=== PATIENT | female | born 1945 | race Asian ===

== ENCOUNTER 2016-09-30 16:56 | Emergency (ER) | payer OTHER ==
[~2016-09-30 16:56] MED LIST: AMLO10TA PO; ASPI81TA85 PO; ATOR1TAB21 PO; CATA0.1T PO; COLA100C PO; LORATAB PO; MELO15TA4 PO; METF500T PO; MICA80TA PO; OMEP40CA2 PO; PAXI20TA3 PO; PERI8.6T PO
[2016-09-30] MEDS ORDERED: IBUPROFEN 600 MG TAB As Ordered ONE (20:20)
--- NOTE | 2016-09-30 21:11 | REP ---
Clinical: Chest pain. Technique: PA and lateral. Comparison: 02/21/2016. Findings: Mediastinum and cardiac silhouette are stable. Lung dewey demonstrate chronic stable changes. No obvious acute consolidation, effusion, or pneumothorax. Surgical clips in the right axillary region again noted. Impression: Chronic changes similar to prior examination. Signed by Benjamin Hodges MD 09/30/2016 09:03 P
--- NOTE | 2016-09-30 21:43 | EDDOCDS ---
Physician Documentation [facility] Name: Duke Pichardo Age: 71 yrs Sex: Female : 1945 Arrival Date: 09/30/2016 Time: 16:56 Bed Private MD: Brice Arnold Disposition: 09/30/16 21:29 Discharged to Home/Self Care. Impression: Strain of muscle and tendon of back wall of thorax, Acute upper respiratory infection, unspecified. - Condition is Stable. - Discharge Instructions: Muscle Strain, Upper Respiratory Infection, Adult. - Prescriptions for Robaxin 500 mg Oral Tablet - take 2 tablet by ORAL route every 6 hours As needed; 40 tablet. - Medication Reconciliation, Local Pharmacy Hours form. - Follow up: Private Physician; When: Call to arrange an appointment; Reason: Recheck today's complaints, Continuance of care. - Problem is new. - Symptoms are unchanged. Historical: - Allergies: PENICILLINS; - Home Meds: 1. aspirin 81 mg Oral TbEC 1 tab once daily 2. atorvastatin 20 mg oral tab 1 tab once daily 3. Micardis 80 mg Oral tab 1 tab once daily 4. docusate sodium 100 mg Oral cap 1 cap once daily 5. loratadine 10 mg Oral TbDL 1 tab once daily as needed 6. metformin 500 mg Oral tr24 1 tab once daily 7. Mobic 15 mg oral tab 1 tab once daily 8. esomeprazole magnesium 40 mg Oral cpDR 1 cap once daily 9. Norvasc 10 mg Oral tab 1 tab at night (Last dose: 09/29/2016) 10. clonidine HCl 0.1 mg Oral tab 1 tab 3 times per day - PMHx: Asthma; Cancer, Breast - Right; CHF; Diabetes - NIDDM: controlled; GERD; hyperlipidemia; Hypertension; - PSHx: Knee surgery- Left; Knee surgery- Right; Mastectomy- Right; - Social history: Smoking status: Patient states was never smoker of tobacco. The patient speaks a little Azeri. - Family history: No immediate family members are acutely ill. - : The pt / caregiver states he / she is not on anticoagulants. Home medication list is obtained from the patient, [employer] import data. - Exposure Risk Screening:: None identified. Vital Signs: 09/30 16:58 BP 143 / 84; Pulse 95; Resp 18 S; Temp 97.9(O); Pulse Ox 95% on R/A; Weight 65.77 kg / gr2 145 lbs (R); Height 5 ft. 1 in. (154.94 cm) (R); Pain 9/10; 19:13 BP 146 / 92; Pulse 88; Resp 16; Temp 99.1; Pulse Ox 95% ; Pain 10/10; cmb 20:25 BP 180 / 91; Pulse 88; Resp 18; Temp 98.3(TE); Pulse Ox 94% on R/A; Pain 10/10; ar3 21:35 BP 170 / 84; Pulse 80; Resp 18; Temp 98.7; Pulse Ox 94% on R/A; Pain 9/10; ar3 16:58 Body Mass Index 27.40 (65.77 kg, 154.94 cm) gr2 MDM: 20:13 Ibuprofen 600 mg PO once ordered. mo1 20:14 Chest, 2 View (pa\E\lat) Ordered. EDMS Administered Medications: 20:30 Drug: Ibuprofen 600 mg [ibuprofen 600 mg tablet (1 tabs)] Route: PO; mb9 Signatures: Dispatcher [employer] EDMS Mary Dockery RN RN kcs O'Hagan, Michael, PA PA mo1 Reagan Gabriel RN RN mb9 The chart was reviewed and I authenticate all verbal orders and agree with the evaluation and treatment provided.Corrections: (The following items were deleted from the chart) 20:34 17:29 Home Meds: Norvasc 10 mg Oral tab 1 tab once daily; dillan mb9 20:34 17:29 Home Meds: clonidine HCl 0.1 mg Oral tab 1 tab once daily; dillan mb9 MTDD
--- NOTE | 2016-09-30 21:43 | EDDOCDS ---
Nurse's Notes [facility] Name: Duke Pichardo Age: 71 yrs Sex: Female : 1945 Arrival Date: 09/30/2016 Time: 16:56 Bed PR2 / Private MD: Brice Arnold Diagnosis: Strain of muscle and tendon of back wall of thorax;Acute upper respiratory infection, unspecified Presentation: 09/30 17:27 Presenting complaint: Patient states: for a couple of weeks she has had pain in both kcs shoulders and into her neck - non known injury. Adult Sepsis Screening: The patient does not have new or worsening altered mentation. Patient's respiratory rate is less than 22. Systolic blood pressure is greater than 100. Patient has a qSOFA score of 0- Negative Sepsis Screen. Suicide/Homicide risk assessment- the patient denies having any suicidal and/or homicidal ideations and does not present with any other emotional, behavioral or mental health complaints. Status: Patient is not a conference services manager or dependent. Transition of care: patient was not received from another setting of care. 17:27 Acuity: JAYLEEN Level 4 kcs 17:27 Method Of Arrival: Walkin/Carried/Asstd kcs Triage Assessment: 17:29 General: Appears comfortable, well developed, well nourished, well groomed, Behavior is kcs cooperative, pleasant. Pain: Location: both shoulders Pain currently is 10 out of 10 on a pain scale. Aggravated by lifting. Neurological: Level of Consciousness is awake, alert. Respiratory: Airway is patent Respiratory effort is even, unlabored, Respiratory pattern is regular, symmetrical. Derm: Skin is intact, is healthy with good turgor, Skin is dry, Skin is normal. Historical: - Allergies: PENICILLINS; - Home Meds: 1. aspirin 81 mg Oral TbEC 1 tab once daily 2. atorvastatin 20 mg oral tab 1 tab once daily 3. Micardis 80 mg Oral tab 1 tab once daily 4. docusate sodium 100 mg Oral cap 1 cap once daily 5. loratadine 10 mg Oral TbDL 1 tab once daily as needed 6. metformin 500 mg Oral tr24 1 tab once daily 7. Mobic 15 mg oral tab 1 tab once daily 8. esomeprazole magnesium 40 mg Oral cpDR 1 cap once daily 9. Norvasc 10 mg Oral tab 1 tab at night (Last dose: 09/29/2016) 10. clonidine HCl 0.1 mg Oral tab 1 tab 3 times per day - PMHx: Asthma; Cancer, Breast - Right; CHF; Diabetes - NIDDM: controlled; GERD; hyperlipidemia; Hypertension; - PSHx: Knee surgery- Left; Knee surgery- Right; Mastectomy- Right; - Social history: Smoking status: Patient states was never smoker of tobacco. The patient speaks a little Mozambican. - Family history: No immediate family members are acutely ill. - : The pt / caregiver states he / she is not on anticoagulants. Home medication list is obtained from the patient, [employer] import data. - Exposure Risk Screening:: None identified. Screenin:45 Screening information is obtained from the patient. Fall risk: No risks identified. mb9 Assistance ADL's: requires no assistance with activities of daily living. Abuse/DV Screen: The patient / caregiver reports he/she is: not in a situation that causes fear, pain or injury. Nutritional screening: No deficits noted. Advance Directives: There is no active DNR order. home support is adequate. Assessment: 20:45 Adult Sepsis Screening: The patient does not have new or worsening altered mentation. mb9 Patient's respiratory rate is less than 22. Systolic blood pressure is greater than 100. Patient has a qSOFA score of 0- Negative Sepsis Screen. General: Appears in no apparent distress, Behavior is appropriate for age, cooperative. Pain: Location: right arm and left arm Pain currently is 5 out of 10 on a pain scale. Respiratory: Airway is patent. Vital Signs: 16:58 BP 143 / 84; Pulse 95; Resp 18 S; Temp 97.9(O); Pulse Ox 95% on R/A; Weight 65.77 kg gr2 (R); Height 5 ft. 1 in. (154.94 cm) (R); Pain 9/10; 19:13 BP 146 / 92; Pulse 88; Resp 16; Temp 99.1; Pulse Ox 95% ; Pain 10/10; cmb 20:25 BP 180 / 91; Pulse 88; Resp 18; Temp 98.3(TE); Pulse Ox 94% on R/A; Pain 10/10; ar3 21:35 BP 170 / 84; Pulse 80; Resp 18; Temp 98.7; Pulse Ox 94% on R/A; Pain 9/10; ar3 16:58 Body Mass Index 27.40 (65.77 kg, 154.94 cm) gr2 Vitals: 16:58 Log In Time: September 30, 2016 at 16:58. gr2 ED Course: 16:57 Patient visited by Jaison Xavier. gr2 16:57 Patient moved to Waiting gr2 16:58 Brice Arnold is Private Physician. gr2 17:00 Patient visited by Jaison Xavier. gr2 17:00 Patient moved to Pre RCE gr2 17:28 Triage Initiated kcs 19:14 Patient visited by Kely Florez. cmb 19:40 Patient moved to Triage 3 mb9 19:57 Reagan Franklin PA is PHCP. mo1 19:57 Palomo Reeves MD is Attending Physician. mo1 20:12 Patient visited by Reagan Franklin PA. mo1 20:27 Patient visited by Michelle Noriega PCA. ar3 20:38 Patient moved to TR3 mb9 20:45 The patient / caregiver is instructed regarding the plan of care and ED course. mb9 21:06 Patient moved to PR2 / 26 ar3 21:33 Chest, 2 View (pa\E\lat) Returned. EDMS Administered Medications: 20:30 Drug: Ibuprofen 600 mg [ibuprofen 600 mg tablet (1 tabs)] Route: PO; mb9 Order Results: Radiology Order: Chest, 2 View (pa\E\lat) Test: Chest, 2 View (pa\E\lat) REASON FOR EXAMINATION: Cough; Clinical: Chest pain.; ; Technique: PA and lateral.; ; Comparison: 02/21/2016.; ; Findings:; Mediastinum and cardiac silhouette are stable. Lung dewey demonstrate chronic; stable changes. No obvious acute consolidation, effusion, or pneumothorax.; Surgical clips in the right axillary region again noted.; ; Impression:; Chronic changes similar to prior examination.; ; ; Signed by; Benjamin Hodges MD 09/30/2016 09:03 P; Outcome: 21:29 Discharge ordered by Provider. mo1 21:43 Patient left the ED. mb9 Signatures: Dispatcher [employer] EDMS Mary Dockery RN RN [facility] Michelle Noriega PCA SECURITY COMPLIANCE ENGINEER ar3 Kely Florez cmb Jasion Xavier gr2 Reagan Franklin PA PA mo1 Reagan GabrielRN RN mb9 Corrections: (The following items were deleted from the chart) 20:34 17:29 Home Meds: Norvasc 10 mg Oral tab 1 tab once daily; dillan mb9 20:34 17:29 Home Meds: clonidine HCl 0.1 mg Oral tab 1 tab once daily; [facility] mb9 MTDD
--- NOTE | 2016-10-02 22:44 | EDDOCDS ---
Nurse's Notes [facility] Name: Duke Pichardo Age: 71 yrs Sex: Female : 1945 Arrival Date: 09/30/2016 Time: 16:56 Bed PR2 / Private MD: Brice Arnold Diagnosis: Strain of muscle and tendon of back wall of thorax;Acute upper respiratory infection, unspecified Presentation: 09/30 17:27 Presenting complaint: Patient states: for a couple of weeks she has had pain in both kcs shoulders and into her neck - non known injury. Adult Sepsis Screening: The patient does not have new or worsening altered mentation. Patient's respiratory rate is less than 22. Systolic blood pressure is greater than 100. Patient has a qSOFA score of 0- Negative Sepsis Screen. Suicide/Homicide risk assessment- the patient denies having any suicidal and/or homicidal ideations and does not present with any other emotional, behavioral or mental health complaints. Status: Patient is not a service trainer or dependent. Transition of care: patient was not received from another setting of care. 17:27 Acuity: JAYLEEN Level 4 kcs 17:27 Method Of Arrival: Walkin/Carried/Asstd kcs Triage Assessment: 17:29 General: Appears comfortable, well developed, well nourished, well groomed, Behavior is kcs cooperative, pleasant. Pain: Location: both shoulders Pain currently is 10 out of 10 on a pain scale. Aggravated by lifting. Neurological: Level of Consciousness is awake, alert. Respiratory: Airway is patent Respiratory effort is even, unlabored, Respiratory pattern is regular, symmetrical. Derm: Skin is intact, is healthy with good turgor, Skin is dry, Skin is normal. Historical: - Allergies: PENICILLINS; - Home Meds: 1. aspirin 81 mg Oral TbEC 1 tab once daily 2. atorvastatin 20 mg oral tab 1 tab once daily 3. Micardis 80 mg Oral tab 1 tab once daily 4. docusate sodium 100 mg Oral cap 1 cap once daily 5. loratadine 10 mg Oral TbDL 1 tab once daily as needed 6. metformin 500 mg Oral tr24 1 tab once daily 7. Mobic 15 mg oral tab 1 tab once daily 8. esomeprazole magnesium 40 mg Oral cpDR 1 cap once daily 9. Norvasc 10 mg Oral tab 1 tab at night (Last dose: 09/29/2016) 10. clonidine HCl 0.1 mg Oral tab 1 tab 3 times per day - PMHx: Asthma; Cancer, Breast - Right; CHF; Diabetes - NIDDM: controlled; GERD; hyperlipidemia; Hypertension; - PSHx: Knee surgery- Left; Knee surgery- Right; Mastectomy- Right; - Social history: Smoking status: Patient states was never smoker of tobacco. The patient speaks a little Belarusian. - Family history: No immediate family members are acutely ill. - : The pt / caregiver states he / she is not on anticoagulants. Home medication list is obtained from the patient, [employer] import data. - Exposure Risk Screening:: None identified. Screenin:45 Screening information is obtained from the patient. Fall risk: No risks identified. mb9 Assistance ADL's: requires no assistance with activities of daily living. Abuse/DV Screen: The patient / caregiver reports he/she is: not in a situation that causes fear, pain or injury. Nutritional screening: No deficits noted. Advance Directives: There is no active DNR order. home support is adequate. Assessment: 20:45 Adult Sepsis Screening: The patient does not have new or worsening altered mentation. mb9 Patient's respiratory rate is less than 22. Systolic blood pressure is greater than 100. Patient has a qSOFA score of 0- Negative Sepsis Screen. General: Appears in no apparent distress, Behavior is appropriate for age, cooperative. Pain: Location: right arm and left arm Pain currently is 5 out of 10 on a pain scale. Respiratory: Airway is patent. Vital Signs: 16:58 BP 143 / 84; Pulse 95; Resp 18 S; Temp 97.9(O); Pulse Ox 95% on R/A; Weight 65.77 kg gr2 (R); Height 5 ft. 1 in. (154.94 cm) (R); Pain 9/10; 19:13 BP 146 / 92; Pulse 88; Resp 16; Temp 99.1; Pulse Ox 95% ; Pain 10/10; cmb 20:25 BP 180 / 91; Pulse 88; Resp 18; Temp 98.3(TE); Pulse Ox 94% on R/A; Pain 10/10; ar3 21:35 BP 170 / 84; Pulse 80; Resp 18; Temp 98.7; Pulse Ox 94% on R/A; Pain 9/10; ar3 16:58 Body Mass Index 27.40 (65.77 kg, 154.94 cm) gr2 Vitals: 16:58 Log In Time: September 30, 2016 at 16:58. gr2 ED Course: 16:57 Patient visited by Jaison Xavier. gr2 16:57 Patient moved to Waiting gr2 16:58 Brice Arnold is Private Physician. gr2 17:00 Patient visited by Jaison Xavier. gr2 17:00 Patient moved to Pre RCE gr2 17:28 Triage Initiated kcs 19:14 Patient visited by Kely Florez. cmb 19:40 Patient moved to Triage 3 mb9 19:57 Reagan Franklin PA is PHCP. mo1 19:57 Palomo Reeves MD is Attending Physician. mo1 20:12 Patient visited by Reagan Franklin PA. mo1 20:27 Patient visited by Michelle Noriega PCA. ar3 20:38 Patient moved to TR3 mb9 20:45 The patient / caregiver is instructed regarding the plan of care and ED course. mb9 21:06 Patient moved to PR2 / 26 ar3 21:33 Chest, 2 View (pa\E\lat) Returned. EDMS 21:43 No IV's were initiated during this patient's visit. No procedures done that require mb9 assistance. 23:40 [facility] Payment Agreement was scanned into [employer] and attached to record. gjb 10/01 12:45 T-Sheet-- Draft Copy was scanned into [employer] and attached to record. gb Administered Medications: 09/30 20:30 Drug: Ibuprofen 600 mg [ibuprofen 600 mg tablet (1 tabs)] Route: PO; mb9 Order Results: Radiology Order: Chest, 2 View (pa\E\lat) Test: Chest, 2 View (pa\E\lat) REASON FOR EXAMINATION: Cough; Clinical: Chest pain.; ; Technique: PA and lateral.; ; Comparison: 02/21/2016.; ; Findings:; Mediastinum and cardiac silhouette are stable. Lung dewey demonstrate chronic; stable changes. No obvious acute consolidation, effusion, or pneumothorax.; Surgical clips in the right axillary region again noted.; ; Impression:; Chronic changes similar to prior examination.; ; ; Signed by; Benjamin Hodges MD 09/30/2016 09:03 P; Outcome: 21:29 Discharge ordered by Provider. mo1 21:43 Patient left the ED. mb9 21:43 Discharge Assessment: Patient awake, alert and oriented x 3. No cognitive and/or mb9 functional deficits noted. Patient verbalized understanding of disposition instructions. patient administered narcotics - no. The following High Risk Discharge criteria are identified: None. Discharged to home ambulatory. Condition: good Condition: stable Condition: improved. Discharge instructions given to patient, Instructed on discharge instructions, follow up and referral plans. medication usage, Demonstrated understanding of instructions, medications, Pt was receptive of discharge instructions/ teaching. Prescriptions given X 1. No special radiology studies were completed. Property :Personal belongings accompany Pt. Signatures: Dispatcher [employer] EDMary Garcia, RN RN Cass Cain, Reg Reg gb Leann, Michelle, TURNER IN TURNER IN ar3 Gautam, Kely cmb Jaison Xavier gr2 Reagan Franklin PA PA mo1 Reagan Gabriel RN RN herson9 Meaghan Vasquez Corrections: (The following items were deleted from the chart) 20:34 17:29 Home Meds: Norvasc 10 mg Oral tab 1 tab once daily; dillan bains9 20:34 17:29 Home Meds: clonidine HCl 0.1 mg Oral tab 1 tab once daily; dillan mb9 Chart Complete MTDD
--- NOTE | 2016-10-02 22:44 | EDDOCDS ---
Physician Documentation [facility] Name: Duke Pichardo Age: 71 yrs Sex: Female : 1945 Arrival Date: 09/30/2016 Time: 16:56 Bed Private MD: Brice Arnold Disposition: 09/30/16 21:29 Discharged to Home/Self Care. Impression: Strain of muscle and tendon of back wall of thorax, Acute upper respiratory infection, unspecified. - Condition is Stable. - Discharge Instructions: Muscle Strain, Upper Respiratory Infection, Adult. - Prescriptions for Robaxin 500 mg Oral Tablet - take 2 tablet by ORAL route every 6 hours As needed; 40 tablet. - Medication Reconciliation, Local Pharmacy Hours form. - Follow up: Private Physician; When: Call to arrange an appointment; Reason: Recheck today's complaints, Continuance of care. - Problem is new. - Symptoms are unchanged. Historical: - Allergies: PENICILLINS; - Home Meds: 1. aspirin 81 mg Oral TbEC 1 tab once daily 2. atorvastatin 20 mg oral tab 1 tab once daily 3. Micardis 80 mg Oral tab 1 tab once daily 4. docusate sodium 100 mg Oral cap 1 cap once daily 5. loratadine 10 mg Oral TbDL 1 tab once daily as needed 6. metformin 500 mg Oral tr24 1 tab once daily 7. Mobic 15 mg oral tab 1 tab once daily 8. esomeprazole magnesium 40 mg Oral cpDR 1 cap once daily 9. Norvasc 10 mg Oral tab 1 tab at night (Last dose: 09/29/2016) 10. clonidine HCl 0.1 mg Oral tab 1 tab 3 times per day - PMHx: Asthma; Cancer, Breast - Right; CHF; Diabetes - NIDDM: controlled; GERD; hyperlipidemia; Hypertension; - PSHx: Knee surgery- Left; Knee surgery- Right; Mastectomy- Right; - Social history: Smoking status: Patient states was never smoker of tobacco. The patient speaks a little Greenlandic. - Family history: No immediate family members are acutely ill. - : The pt / caregiver states he / she is not on anticoagulants. Home medication list is obtained from the patient, [employer] import data. - Exposure Risk Screening:: None identified. Vital Signs: 09/30 16:58 BP 143 / 84; Pulse 95; Resp 18 S; Temp 97.9(O); Pulse Ox 95% on R/A; Weight 65.77 kg / gr2 145 lbs (R); Height 5 ft. 1 in. (154.94 cm) (R); Pain 9/10; 19:13 BP 146 / 92; Pulse 88; Resp 16; Temp 99.1; Pulse Ox 95% ; Pain 10/10; cmb 20:25 BP 180 / 91; Pulse 88; Resp 18; Temp 98.3(TE); Pulse Ox 94% on R/A; Pain 10/10; ar3 21:35 BP 170 / 84; Pulse 80; Resp 18; Temp 98.7; Pulse Ox 94% on R/A; Pain 9/10; ar3 16:58 Body Mass Index 27.40 (65.77 kg, 154.94 cm) gr2 MDM: 20:13 Ibuprofen 600 mg PO once ordered. mo1 20:14 Chest, 2 View (pa\E\lat) Ordered. [facility] 23:40 [facility] Payment Agreement was scanned into [employer] and attached to record. [facility] :40 Financial registration complete. [facility] 10/01 12:45 T-Sheet-- Draft Copy was scanned into [employer] and attached to record. gb Administered Medications: 09/30 20:30 Drug: Ibuprofen 600 mg [ibuprofen 600 mg tablet (1 tabs)] Route: PO; levy Signatures: Dispatcher [employer] EDOK Mary Dockery RN RN kcs Barnhardt, Gloria, Reg Reg Reagan Mcdowell PA PA mo1 Reagan Gabriel RN RN mb9 Beck, Gabriela gjb The chart was reviewed and I authenticate all verbal orders and agree with the evaluation and treatment provided.Corrections: (The following items were deleted from the chart) 20:34 17:29 Home Meds: Norvasc 10 mg Oral tab 1 tab once daily; dillan lockett 20:34 17:29 Home Meds: clonidine HCl 0.1 mg Oral tab 1 tab once daily; dillan bains9 Attachments: 23:40 [facility] Payment Agreement [facility] 10/01 12:45 T-Sheet-- Draft Copy gb Chart Complete MTDD
--- NOTE | 2016-10-02 22:44 | EDDOCDS ---
Physician Documentation [facility] Name: Duke Pichardo Age: 71 yrs Sex: Female : 1945 Arrival Date: 09/30/2016 Time: 16:56 Bed Private MD: Brice Arnold Disposition: 09/30/16 21:29 Discharged to Home/Self Care. Impression: Strain of muscle and tendon of back wall of thorax, Acute upper respiratory infection, unspecified. - Condition is Stable. - Discharge Instructions: Muscle Strain, Upper Respiratory Infection, Adult. - Prescriptions for Robaxin 500 mg Oral Tablet - take 2 tablet by ORAL route every 6 hours As needed; 40 tablet. - Medication Reconciliation, Local Pharmacy Hours form. - Follow up: Private Physician; When: Call to arrange an appointment; Reason: Recheck today's complaints, Continuance of care. - Problem is new. - Symptoms are unchanged. Historical: - Allergies: PENICILLINS; - Home Meds: 1. aspirin 81 mg Oral TbEC 1 tab once daily 2. atorvastatin 20 mg oral tab 1 tab once daily 3. Micardis 80 mg Oral tab 1 tab once daily 4. docusate sodium 100 mg Oral cap 1 cap once daily 5. loratadine 10 mg Oral TbDL 1 tab once daily as needed 6. metformin 500 mg Oral tr24 1 tab once daily 7. Mobic 15 mg oral tab 1 tab once daily 8. esomeprazole magnesium 40 mg Oral cpDR 1 cap once daily 9. Norvasc 10 mg Oral tab 1 tab at night (Last dose: 09/29/2016) 10. clonidine HCl 0.1 mg Oral tab 1 tab 3 times per day - PMHx: Asthma; Cancer, Breast - Right; CHF; Diabetes - NIDDM: controlled; GERD; hyperlipidemia; Hypertension; - PSHx: Knee surgery- Left; Knee surgery- Right; Mastectomy- Right; - Social history: Smoking status: Patient states was never smoker of tobacco. The patient speaks a little Czech. - Family history: No immediate family members are acutely ill. - : The pt / caregiver states he / she is not on anticoagulants. Home medication list is obtained from the patient, [employer] import data. - Exposure Risk Screening:: None identified. Vital Signs: 09/30 16:58 BP 143 / 84; Pulse 95; Resp 18 S; Temp 97.9(O); Pulse Ox 95% on R/A; Weight 65.77 kg / gr2 145 lbs (R); Height 5 ft. 1 in. (154.94 cm) (R); Pain 9/10; 19:13 BP 146 / 92; Pulse 88; Resp 16; Temp 99.1; Pulse Ox 95% ; Pain 10/10; cmb 20:25 BP 180 / 91; Pulse 88; Resp 18; Temp 98.3(TE); Pulse Ox 94% on R/A; Pain 10/10; ar3 21:35 BP 170 / 84; Pulse 80; Resp 18; Temp 98.7; Pulse Ox 94% on R/A; Pain 9/10; ar3 16:58 Body Mass Index 27.40 (65.77 kg, 154.94 cm) gr2 MDM: 20:13 Ibuprofen 600 mg PO once ordered. mo1 20:14 Chest, 2 View (pa\E\lat) Ordered. [facility] 23:40 [facility] Payment Agreement was scanned into [employer] and attached to record. [facility] :40 Financial registration complete. [facility] 10/01 12:45 T-Sheet-- Draft Copy was scanned into [employer] and attached to record. gb Administered Medications: 09/30 20:30 Drug: Ibuprofen 600 mg [ibuprofen 600 mg tablet (1 tabs)] Route: PO; levy Signatures: Dispatcher [employer] EDOH Mary Dockery RN RN kcs Barnhardt, Gloria, Reg Reg Reagan Mcdowell PA PA mo1 Reagan Gabriel RN RN mb9 Beck, Gabriela gjb The chart was reviewed and I authenticate all verbal orders and agree with the evaluation and treatment provided.Corrections: (The following items were deleted from the chart) 20:34 17:29 Home Meds: Norvasc 10 mg Oral tab 1 tab once daily; dillan lockett 20:34 17:29 Home Meds: clonidine HCl 0.1 mg Oral tab 1 tab once daily; dillan bains9 Attachments: 23:40 [facility] Payment Agreement [facility] 10/01 12:45 T-Sheet-- Draft Copy gb Chart Complete MTDD
== END 2016-09-30 21:43 | disposition home or self-care (01) ==
LOC: M ED 16:56
DX: S29.012A Strain of muscle and tendon of back wall of thorax, initial encounter (principal); X58.XXXA Exposure to other specified factors, initial encounter; Y92.89 Other specified places as the place of occurrence of the external cause; Y93.89 Activity, other specified; Y99.8 Other external cause status; J45.909 Unspecified asthma, uncomplicated; Z85.3 Personal history of malignant neoplasm of breast; I50.20 Unspecified systolic (congestive) heart failure; E11.9 Type 2 diabetes mellitus without complications; K21.9 Gastro-esophageal reflux disease without esophagitis; E78.5 Hyperlipidemia, unspecified; I10 Essential (primary) hypertension; Z79.82 Long term (current) use of aspirin; Z79.84 Long term (current) use of oral hypoglycemic drugs; Z79.899 Other long term (current) drug therapy; Z88.0 Allergy status to penicillin

== ENCOUNTER → 2016-10-03 | Outpatient (CLI) | payer MEDICARE, OTHER ==
--- NOTE | 2016-10-03 13:16 | REP ---
WHOLE BODY BONE SCAN: Following the intravenous administration of 21.4 mCi of technetium 99m MDP, patient's whole body is imaged in the anterior and posterior projections. Additional oblique images are performed of the thoracic and pelvic regions as well as lateral views of the calvarium. There appears to be mild arthritic uptake in the hands and wrists, as well as in the thoracic spine region. 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 There is a tiny focus of mildly increased uptake along the greater trochanter of the proximal right femur probably the result of some tendinobursitis at this location. I see no compelling scintigraphic evidence of osseous metastases. Renal and bladder activity are seen. IMPRESSION: No compelling scintigraphic evidence of osseous metastases. Signed by Kip Bailey MD 10/03/2016 01:31 P
== END ==
LOC: M RAD 09:27
PROVIDERS: ATTEND Internal Medicine Medical Oncology
DX: C50.919 Malignant neoplasm of unspecified site of unspecified female breast (principal); M25.512 Pain in left shoulder; M79.622 Pain in left upper arm
CPT/HCPCS: 78306; A9503

== ENCOUNTER 2016-10-25 18:09 | Emergency (ER) | payer MEDICARE, OTHER ==
[2016-10-25 19:55] LABS: BASO # 0.2 K/mm3 (0.0-0.2); BASO % 2.9 % (0.0-1.0); EOS # 0.1 K/mm3 (0.0-0.50); EOS % 1.1 % (0.0-3.0); LARGE UNSTAINED CELL # 0.2 K/mm3 (0.0-0.4); LARGE UNSTAINED CELL % 2.1 % (0.0-4.0); LYMPH # 2.1 K/mm3 (1.5-4.5); LYMPH % 26.3 % (24.0-44.0); MEAN CORPUSCULAR HEMOGLOBIN 29.3 pg (27.0-33.0); MEAN CORPUSCULAR HGB CONC 34.2 g/dl (32.0-36.5); MEAN CORPUSCULAR VOLUME 85.8 fl (80.0-96.0); MONO # 0.4 K/mm3 (0.0-0.8); MONO % 5.8 % (0.0-5.0); NEUTROPHILS # 4.5 K/mm3 (1.8-7.7); NEUTROPHILS % 61.8 % (36.0-66.0); PLATELET COUNT, AUTOMATED 231 k/mm3 (150-450); RED CELL DISTRIBUTION WIDTH 12.9 % (11.5-14.5); WHITE BLOOD COUNT 7.3 K/mm3 (4.0-10.0)
[2016-10-25 20:14] LABS: ANION GAP 7 MEQ/L (8-16); BLOOD UREA NITROGEN 12 MG/DL (7-18); CALCIUM LEVEL 9.6 MG/DL (8.8-10.2); CARBON DIOXIDE LEVEL 30 MEQ/L (21-32); CHLORIDE LEVEL 98 MEQ/L (98-107); GLOMERULAR FILTRATION RATE > 60.0 (>39); GLUCOSE, FASTING 102 MG/DL (83-110); POTASSIUM SERUM 3.9 MEQ/L (3.5-5.1); SODIUM LEVEL 135 MEQ/L (136-145)
[2016-10-26] MEDS ORDERED: metFORMIN (GLUCOPHAGE) 500 MG TAB As Ordered ONE (01:21)
[2016-10-26] MEDS ORDERED: cloNIDine 0.2 MG TAB As Ordered ONE (01:21)
[2016-10-26] MEDS ORDERED: amLODIPine 5 MG TAB As Ordered ONE (01:22)
--- NOTE | 2016-10-26 02:27 | EDDOCDS ---
Physician Documentation [facility] Name: Duke Pichardo Age: 71 yrs Sex: Female : 1945 Arrival Date: 10/25/2016 Time: 18:09 Bed TR7 Private MD: MYRIAM Xie Disposition: 10/26/16 01:32 Discharged to Home/Self Care. Impression: Fever, unspecified, Viral infection, unspecified. - Condition is Stable. - Discharge Instructions: Fever, Adult, Viral Infections. - Medication Reconciliation, Local Pharmacy Hours form. - Follow up: MYRIAM Xie; When: 1 - 2 days; Reason: Recheck today's complaints, Continuance of care. - Problem is new. - Symptoms have improved. - Notes: USE TYLENOL OR MOTRIN FOR FEVER CONTROL, FOLLOW UP WITH YOUR DOCTOR ON THURSDAY, RETURN TO THE ER IF THE SYMPTOMS WORSEN OR BECOME CONCERNING Historical: - Allergies: PENICILLINS; - Home Meds: 1. aspirin 81 mg Oral TbEC 1 tab once daily 2. atorvastatin 20 mg oral tab 1 tab once daily 3. clonidine HCl 0.1 mg Oral tab 1 tab 3 times per day 4. docusate sodium 100 mg Oral cap 1 cap once daily 5. esomeprazole magnesium 40 mg Oral cpDR 1 cap once daily 6. loratadine 10 mg Oral TbDL 1 tab once daily as needed 7. metformin 500 mg Oral tr24 1 tab once daily 8. Micardis 80 mg Oral tab 1 tab once daily 9. Mobic 15 mg oral tab 1 tab once daily 10. Norvasc 10 mg Oral tab 1 tab at night 11. Catapres 0.1 mg Oral tab 1 tab 3 times per day - PMHx: Asthma; Cancer, Breast - Right; CHF; Diabetes - NIDDM: controlled; GERD; hyperlipidemia; Hypertension; - PSHx: Knee surgery- Left; Knee surgery- Right; Mastectomy- Right; Hysterectomy; - Social history: Smoking status: Patient states was never smoker of tobacco. No barriers to communication noted, The patient speaks fluent Greek. - Family history: Not pertinent, No immediate family members are acutely ill. - : The pt / caregiver states he / she is not on anticoagulants. Home medication list is obtained from the patient. - Exposure Risk Screening:: None identified. Vital Signs: 10/25 18:11 BP 136 / 77; Pulse 84; Resp 18 S; Temp 97.9(O); Pulse Ox 98% on R/A; Weight 65.32 kg / dd6 144.01 lbs (R); Height 5 ft. 1 in. (154.94 cm) (R); 21:26 BP 130 / 72; Pulse 81; Resp 18; Temp 97.5; Pulse Ox 98% on R/A; Pain 0/10; ct3 21:45 BP 167 / 83; Pulse 89; Resp 18; Temp 97.7(O); Pulse Ox 97% on R/A; [facility] [place] 10/26 02:08 BP 176 / 96; Pulse 80; Resp 18; Temp 97.5(O); Pulse Ox 98% on R/A; [facility] [place] 10/25 18:11 Body Mass Index 27.21 (65.32 kg, 154.94 cm) dd6 MDM: 10/25 19:20 -Blood Culture (Adults Only), peripheral from different site, or from device/port/PICC ck7 etc. if present ordered. 19:20 Obtain sample by nasopharyngeal swab ordered. ck7 19:20 CBC with Diff Ordered. EDMS 19:20 MED Profile Ordered. EDMS 19:21 UA Ordered. EDMS 19:21 -Blood Culture Ordered. EDMS 19:21 -Influenza A&B Rapid Antigen - Nose Ordered. EDMS 19:21 Urine Culture Ordered. EDMS 19:21 Chest, 2 View (pa\E\lat) Ordered. EDMS 19:23 -Blood Culture (Adults Only), peripheral from different site, or from device/port/PICC ajs etc. if present complete. 19:25 BLOOD CULTURES Ordered. EDMS 21:06 CBC with Diff Reviewed. ck7 21:06 MED Profile Reviewed. ck7 21:06 UA Reviewed. ck7 21:06 -Influenza A&B Rapid Antigen - Nose Reviewed. ck7 21:41 Recheck Vital Signs, perform reassessment and enter into [employer] ordered. ck7 21:41 Accucheck ordered. ck7 21:47 IV Saline Lock ordered. ck7 21:48 ECG WITH READING ER PHYS+CARDIAG ordered. EDMS 21:55 Fingerstick Blood Sugar Ordered. EDMS 23:32 MED Profile Reviewed. ck7 23:32 Fingerstick Blood Sugar Reviewed. ck7 23:32 Cardiac Marker Panel Reviewed. ck7 23:36 Financial registration complete. ks16 23:49 Accucheck ordered. ck7 10/26 00:07 Redraw CIP &Troponin (put time in details section) ordered. ck7 00:09 [facility] Payment Agreement was scanned into [employer] and attached to record. ks16 00:14 Redraw CIP &Troponin (put time in details section) complete. ajs 00:15 CARDIAC INJURY PROFILE Ordered. EDMS 00:15 TROPONIN Ordered. EDMS 00:31 Fingerstick Blood Sugar Ordered. EDMS 01:14 Fingerstick Blood Sugar Reviewed. ck7 01:14 CARDIAC INJURY PROFILE Reviewed. ck7 01:14 TROPONIN Reviewed. ck7 01:16 metFORMIN 500 mg PO once ordered. ck7 01:16 amLODIPine 10 mg PO once ordered. ck7 01:16 cloNIDine 0.1 mg PO once ordered. ck7 Point of Care Testing: Blood Glucose: 00:43 Blood Glucose: 143 mg/dL; alicia Ranges: Administered Medications: 01:27 Drug: metFORMIN 500 mg [metformin 500 mg tablet (1 tabs)] Route: PO; jmb :27 Drug: amLODIPine 10 mg [amlodipine 5 mg tablet (2 tabs)] Route: PO; jmb :27 Drug: cloNIDine 0.1 mg [clonidine HCl 0.2 mg tablet (0.5 tabs)] Route: PO; alicia Signatures: Dispatcher [employer] EDNM Daisy Umanzor, RN RN Sadaf Carbajal, RN RN jBhavna Macias Christopher, RPA-C RPA-Cck7 Tiffanie Faith, Reg Reg ks16 Henry Espino RN The chart was reviewed and I authenticate all verbal orders and agree with the evaluation and treatment provided.Corrections: (The following items were deleted from the chart) 10/25 21:53 21:48 CARDIAC MARKER PANEL+LAB ordered. EDMS EDMS 22:12 21:53 CARDIAC MARKER PANEL ordered. EDMS EDMS Attachments: 10/26 00:09 [facility] Payment Agreement ks16 MTDD
--- NOTE | 2016-10-26 02:27 | EDDOCDS ---
Nurse's Notes [facility] Name: Duke Pichardo Age: 71 yrs Sex: Female : 1945 Arrival Date: 10/25/2016 Time: 18:09 Bed TR7 Private MD: MYRIAM Xie Diagnosis: Fever, unspecified;Viral infection, unspecified Presentation: 10/25 18:13 Presenting complaint: Patient states: fever and chills began earlier today. Adult jjr Sepsis Screening: The patient does not have new or worsening altered mentation. Patient's respiratory rate is less than 22. Systolic blood pressure is greater than 100. Patient has a qSOFA score of 0- Negative Sepsis Screen. Suicide/Homicide risk assessment- the patient denies having any suicidal and/or homicidal ideations and does not present with any other emotional, behavioral or mental health complaints. Status: Patient is not a emergency medical service coordinator or dependent. Transition of care: patient was not received from another setting of care. 18:13 Acuity: JAYLEEN Level 4 jjr 18:13 Method Of Arrival: Walkin/Carried/Asstd jjr Triage Assessment: 18:18 General: Appears in no apparent distress. General: Reports fever for 0-12 hours. Pain: jjr Denies pain. Historical: - Allergies: PENICILLINS; - Home Meds: 1. aspirin 81 mg Oral TbEC 1 tab once daily 2. atorvastatin 20 mg oral tab 1 tab once daily 3. clonidine HCl 0.1 mg Oral tab 1 tab 3 times per day 4. docusate sodium 100 mg Oral cap 1 cap once daily 5. esomeprazole magnesium 40 mg Oral cpDR 1 cap once daily 6. loratadine 10 mg Oral TbDL 1 tab once daily as needed 7. metformin 500 mg Oral tr24 1 tab once daily 8. Micardis 80 mg Oral tab 1 tab once daily 9. Mobic 15 mg oral tab 1 tab once daily 10. Norvasc 10 mg Oral tab 1 tab at night 11. Catapres 0.1 mg Oral tab 1 tab 3 times per day - PMHx: Asthma; Cancer, Breast - Right; CHF; Diabetes - NIDDM: controlled; GERD; hyperlipidemia; Hypertension; - PSHx: Knee surgery- Left; Knee surgery- Right; Mastectomy- Right; Hysterectomy; - Social history: Smoking status: Patient states was never smoker of tobacco. No barriers to communication noted, The patient speaks fluent [place] Islander. - Family history: Not pertinent, No immediate family members are acutely ill. - : The pt / caregiver states he / she is not on anticoagulants. Home medication list is obtained from the patient. - Exposure Risk Screening:: None identified. Screenin:40 Screening information is obtained from the patient. Fall risk: No risks identified. kmg1 Assistance ADL's: requires no assistance with activities of daily living. Abuse/DV Screen: The patient / caregiver reports he/she is: not in a situation that causes fear, pain or injury. Nutritional screening: No deficits noted. Advance Directives: There is no active DNR order. home support is adequate. Assessment: 19:40 General: Appears in no apparent distress, Behavior is appropriate for age, cooperative. kmg1 Neurological: Level of Consciousness is awake, alert, Oriented to person, place, time. EENT: Reports Cold symptoms and fever. Respiratory: Airway is patent Respiratory effort is even, unlabored, Respiratory pattern is regular, symmetrical. 21:55 General: Appears in no apparent distress, ill, Behavior is appropriate for age, kmg1 cooperative. Neurological: Level of Consciousness is awake, alert, Oriented to person, place, time. Respiratory: Airway is patent Respiratory effort is even, unlabored, Respiratory pattern is regular, symmetrical. 22:02 General: Appears in no apparent distress, comfortable, Behavior is appropriate for age, ms18 cooperative, pleasant. Pain: Denies pain. Neurological: Level of Consciousness is awake, alert, obeys commands, Oriented to person, place, time. Cardiovascular: Rhythm is sinus rhythm. Respiratory: Airway is patent Respiratory effort is even, unlabored. Respiratory: Airway is patent Respiratory effort is even, unlabored, Respiratory pattern is regular, symmetrical. Derm: Skin is pink, warm & dry. 22:56 General: Pt in no acute distress. Pt ate a box lunch and states that she feels good. Pt ms18 requests water. Will continue to monitor pt. Respiratory: No deficits noted. Derm: Skin is pink, warm & dry. 23:32 General: Appears in no apparent distress, comfortable, Behavior is appropriate for age, jmb cooperative, Patient ambulated to bathroom, sitting on stretcher at this time. No voiced complaints at this time. . Neurological: Level of Consciousness is awake, alert, obeys commands, Oriented to person, place, time. Respiratory: Airway is patent Respiratory effort is even, unlabored, Respiratory pattern is regular, symmetrical. 10/26 02:08 Reassessment: Patient appears in no apparent distress at this time. Patient states km feeling better. Patient states symptoms have improved. Vital Signs: 10/25 18:11 BP 136 / 77; Pulse 84; Resp 18 S; Temp 97.9(O); Pulse Ox 98% on R/A; Weight 65.32 kg dd6 (R); Height 5 ft. 1 in. (154.94 cm) (R); 21:26 BP 130 / 72; Pulse 81; Resp 18; Temp 97.5; Pulse Ox 98% on R/A; Pain 0/10; ct3 21:45 BP 167 / 83; Pulse 89; Resp 18; Temp 97.7(O); Pulse Ox 97% on R/A; [facility] [place] 02:08 BP 176 / 96; Pulse 80; Resp 18; Temp 97.5(O); Pulse Ox 98% on R/A; [facility] [place] 18:11 Body Mass Index 27.21 (65.32 kg, 154.94 cm) dd6 Vitals: 10/25 18:11 Log In Time: October 25, 2016 at 18:09. dd6 ED Course: 18:10 Patient visited by Armen Valerio PCA. dd6 18:10 Patient moved to Waiting dd6 18:11 Rojas [facility] is Private Physician. dd6 18:13 Patient moved to Pre RCE dd6 18:15 Triage Initiated jjr 18:49 Patient moved to Triage 1 jmb 19:03 [facility] ck7 19:03 Patient visited by Brice Majano RPA-C. ck7 19:23 Evan Dimas DO is Attending Physician. ck7 19:38 Patient visited by Brice Majano RPA-C. ck7 19:38 -Influenza A&B Rapid Antigen - Nose Sent. jmb 19:38 MED Profile Sent. jmb 19:38 CBC with Diff Sent. jmb 19:40 Patient moved to TR2 ct3 19:40 The patient / caregiver is instructed regarding the plan of care and ED course. [facility] [place] BLOOD CULTURES Sent. ct3 19:40 Urine Culture Sent. ct3 19:40 UA Sent. ct3 19:40 -Blood Culture Sent. ct3 20:25 Patient visited by Vanessa Sexton PCA. ct3 20:56 Patient visited by Vanessa Sexton PCA. ct3 21:22 Patient moved to PR1 / 25 slm 21:23 Patient moved to PR2 / 26 slm 21:31 Patient visited by Vanessa Sexton PCA. ct3 21:48 Patient moved to I3 / M3 ajs 22:02 Patient visited by Nara Roman,RN. ms18 22:02 Patient has correct armband on for positive identification. Placed in gown. Property ms18 :Personal belongings accompany Pt. 22:02 Inserted saline lock: 20 gauge in left antecubital area and blood collected. The ms18 patient tolerated the procedure well. 22:05 Patient visited by Bhavna Manrique. ajs 22:05 EKG done. (by ED staff). Reviewed by Brice STARK. ajs 22:38 Patient visited by Brice Majano RPA-C. ck7 22:56 Patient visited by Nara Roman,MERI. ms18 23:32 Patient visited by Brice Majano RPA-C. ck7 23:33 Patient visited by Henry Espino,MERI. jmb 10/26 00:09 [facility] Payment Agreement was scanned into [employer] and attached to record. ks16 00:10 Patient visited by Birce Majano RPA-C. ck7 00:24 TROPONIN Sent. ajs 00:24 CARDIAC INJURY PROFILE Sent. ajs 00:52 Patient visited by Brice Majano RPA-C. ck7 01:32 Rojas [facility] is Referral Physician. ck7 02:04 Patient moved to TR7 jmb 02:08 Discontinued lock bleeding controlled, pressure dressing applied, No redness/swelling kmg1 at site. No procedures done that require assistance. Administered Medications: : Drug: metFORMIN 500 mg [metformin 500 mg tablet (1 tabs)] Route: PO; jmb :27 Drug: amLODIPine 10 mg [amlodipine 5 mg tablet (2 tabs)] Route: PO; [facility] 01:27 Drug: cloNIDine 0.1 mg [clonidine HCl 0.2 mg tablet (0.5 tabs)] Route: PO; [facility] Point of Care Testing: Blood Glucose: 00:43 Blood Glucose: 143 mg/dL; [facility] Ranges: Order Results: Lab Order: CBC with Diff; SPEC'M 10/25/16 19:22 Test: WHITE BLOOD COUNT; Value: 7.3; Range: 4.0-10.0; Units: K/mm3; Status: F Test: RED BLOOD COUNT; Value: 4.53; Range: 4.00-5.40; Units: M/mm3; Status: F Test: HEMOGLOBIN; Value: 13.3; Range: 12.0-16.0; Units: g/dl; Status: F Test: HEMATOCRIT; Value: 38.9; Range: 36.0-47.0; Units: %; Status: F Test: MEAN CORPUSCULAR VOLUME; Value: 85.8; Range: 80.0-96.0; Units: fl; Status: F Test: MEAN CORPUSCULAR HEMOGLOBIN; Value: 29.3; Range: 27.0-33.0; Units: pg; Status: F Test: MEAN CORPUSCULAR HGB CONC; Value: 34.2; Range: 32.0-36.5; Units: g/dl; Status: F Test: RED CELL DISTRIBUTION WIDTH; Value: 12.9; Range: 11.5-14.5; Units: %; Status: F Test: PLATELET COUNT, AUTOMATED; Value: 231; Range: 150-450; Units: k/mm3; Status: F Test: NEUTROPHILS %; Value: 61.8; Range: 36.0-66.0; Units: %; Status: F Test: LYMPH %; Value: 26.3; Range: 24.0-44.0; Units: %; Status: F Test: MONO %; Value: 5.8; Range: 0.0-5.0; Abnormal: Above high normal; Units: %; Status: F Test: EOS %; Value: 1.1; Range: 0.0-3.0; Units: %; Status: F Test: BASO %; Value: 2.9; Range: 0.0-1.0; Abnormal: Above high normal; Units: %; Status: F Test: LARGE UNSTAINED CELL %; Value: 2.1; Range: 0.0-4.0; Units: %; Status: F Test: NEUTROPHILS #; Value: 4.5; Range: 1.8-7.7; Units: K/mm3; Status: F Test: LYMPH #; Value: 2.1; Range: 1.5-4.5; Units: K/mm3; Status: F Test: MONO #; Value: 0.4; Range: 0.0-0.8; Units: K/mm3; Status: F Test: EOS #; Value: 0.1; Range: 0.0-0.50; Units: K/mm3; Status: F Test: BASO #; Value: 0.2; Range: 0.0-0.2; Units: K/mm3; Status: F Test: LARGE UNSTAINED CELL #; Value: 0.2; Range: 0.0-0.4; Units: K/mm3; Status: F Lab Order: MED Profile; [facility] 10/25[facility]16 19:22 Test: GLUCOSE, FASTING; Value: 102; Range: 83-110; Units: MG/DL; Status: F Test: BLOOD UREA NITROGEN; Value: 12; Range: 7-18; Units: MG/DL; Status: F Test: CREATININE FOR GFR; Value: 0.70; Range: 0.55-1.02; Units: MG/DL; Status: F Test: GLOMERULAR FILTRATION RATE; Value: > 60.0; Range: >39; Status: F Test: SODIUM LEVEL; Value: 135; Range: 136-145; Abnormal: Below low normal; Units: MEQ/L; Status: F Test: POTASSIUM SERUM; Value: 3.9; Range: 3.5-5.1; Units: MEQ/L; Status: F Test: CHLORIDE LEVEL; Value: 98; Range: 98-107; Units: MEQ/L; Status: F Test: CARBON DIOXIDE LEVEL; Value: 30; Range: 21-32; Units: MEQ/L; Status: F Test: ANION GAP; Value: 7; Range: 8-16; Abnormal: Below low normal; Units: MEQ/L; Status: F Test: CALCIUM LEVEL; Value: 9.6; Range: 8.8-10.2; Units: MG/DL; Status: F Test Note: ; Units are mL/min/1.73 m2 Chronic Kidney Disease Staging per NKF: Stage I & II GFR >=60 Normal to Mildly Decreased Stage III GFR 30-59 Moderately Decreased Stage IV GFR 15-29 Severely Decreased Stage V GFR <15 Very Little GFR Left ESRD GFR <15 on [place] Lab Order: -Influenza A&B Rapid Antigen - Nose; SPEC'M 10/25/16 19:22 Test: INFLUENZA A RAPID SCR by ICA; Value: INFLUENZA A RESULTS NEGATIVE; Status: F Test: INFLUENZA A RAPID SCR by ICA; Value: Comments:; Status: F Test: INFLUENZA B RAPID SCR by ICA; Value: INFLUENZA B RESULTS NEGATIVE; Status: F Test Note: ; The Influenza test is a direct rapid immunoassay for the qualitative detection of Influenza viral antigen. Cell culture (Viral Culture) testing should be considered to confirm NEGATIVE results and to assist in detecting other viruses that can provide similar clinical symptoms. Please contact the lab within 24 hours ([phone]) if confirmatory testing is desired. Lab Order: UA; SPEC'M 10/25/16 19:22 Test: APPEARANCE, URINE; Value: CLEAR; Range: CLEAR; Status: F Test: COLOR, URINE; Value: STRAW; Range: YELLOW; Status: F Test: PH,URINE; Value: 7.0; Range: 5.0-9.0; Units: UNITS; Status: F Test: SPECIFIC GRAVITY URINE AUTO; Value: 1.003; Range: 1.002-1.035; Status: F Test: PROTEIN, URINE AUTO; Value: NEGATIVE; Range: NEGATIVE; Units: mg/dL; Status: F Test: GLUCOSE, URINE (UA) AUTO; Value: NEGATIVE; Range: NEGATIVE; Units: mg/dL; Status: F Test: KETONE, URINE AUTO; Value: NEGATIVE; Range: NEGATIVE; Units: mg/dL; Status: F Test: UROBILINOGEN, URINE AUTO; Value: 0.2; Range: 0.0-2.0; Units: mg/dL; Status: F Test: BILIRUBIN, URINE AUTO; Value: NEGATIVE; Range: NEGATIVE; Status: F Test: NITRITE, URINE AUTO; Value: NEGATIVE; Range: NEGATIVE; Status: F Test: LEUKOCYTE ESTERASE, URINE AUTO; Value: TRACE; Range: NEGATIVE; Abnormal: Above high normal; Status: F Test: BLOOD, URINE BLOOD; Value: NEGATIVE; Range: NEGATIVE; Status: F Test: WBC, URINE AUTO; Value: 0; Range: 0-3; Units: /HPF; Status: F Test: RBC, URINE AUTO; Value: 0; Range: 0-3; Units: /HPF; Status: F Test: BACTERIA, URINE AUTO; Value: 1+; Range: NEGATIVE; Abnormal: Above high normal; Status: F Test: SQUAMOUS EPITHELIAL CELL UR AU; Value: 0; Range: 0-6; Units: /HPF; Status: F Test: HYALINE CAST, URINE AUTO; Value: 0; Range: 0-1; Units: /LPF; Status: F Lab Order: Cardiac Marker Panel; [facility] 10/25/16 22:00 Test: CPK CREATINE PHOSPHOKINASE; Value: 95; Range: 26-192; Units: U/L; Status: F Test: CK-MB VALUE MASS; Value: 1.0; Range: 0.0-3.6; Units: NG/ML; Status: F Test: MB/CK RELATIVE INDEX; Value: 1.05; Range: < OR =4; Status: F Test: TROPONIN I; Value: < 0.02; Range: < 0.10; Units: NG/ML; Status: F Test Note: ; DIAGNOSIS CRITERIA MMB ng/ml Relative Index (RI) NON-AMI < or = 5 N/A [place] > 5 < or = 4 AMI > 5 > 4 Lab Order: Fingerstick Blood Sugar; [facility] 10/25/16 21:43 Test: BEDSIDE GLUCOSE; Value: 78; Range: 83-110; Abnormal: Below low normal; Units: MG/DL; Status: F Lab Order: CARDIAC INJURY PROFILE; [facility] 10/26/16 00:21 Test: CPK CREATINE PHOSPHOKINASE; Value: 82; Range: 26-192; Units: U/L; Status: F Test: CK-MB VALUE MASS; Value: 1.2; Range: 0.0-3.6; Units: NG/ML; Status: F Test: MB/CK RELATIVE INDEX; Value: 1.46; Range: < OR =4; Status: F Test Note: ; DIAGNOSIS CRITERIA MMB ng/ml Relative Index (RI) NON-AMI < or = 5 N/A [place] > 5 < or = 4 AMI > 5 > 4 Lab Order: TROPONIN; SPEC'M 10/26/16 00:21 Test: TROPONIN I; Value: < 0.02; Range: < 0.10; Units: NG/ML; Status: F Test Note: ; Troponin I Reference Interval for [employer] LOCI: 99th Percentile= 0.00-0.045 ng/ml Risk Stratification: <= 0.10 ng/ml Decreased Risk for Adverse Clinical Events. 0.10-1.50 ng/ml Increased Risk for Adverse Clinical Events. Evaluation of additional criterion and/or repeat testing in 2-6 hours is suggested to rule out myocardial damage. >= 1.50 ng/ml Indicative of Myocardial Injury. Lab Order: Fingerstick Blood Sugar; SPEC'M 10/26/16 00:20 Test: BEDSIDE GLUCOSE; Value: 143; Range: 83-110; Abnormal: Above high normal; Units: MG/DL; Status: F Outcome: 01:32 Discharge ordered by Provider. ck7 02:08 Discharge Assessment: Patient awake, alert and oriented x 3. No cognitive and/or kmg1 functional deficits noted. Patient verbalized understanding of disposition instructions. Patient awake and alert. patient administered narcotics - no. The following High Risk Discharge criteria are identified: None. Discharged to home ambulatory. Condition: stable. Discharge instructions given to patient, Instructed on discharge instructions, follow up and referral plans. medication usage, Demonstrated understanding of instructions, Pt was receptive of discharge instructions/ teaching. 02:10 No special radiology studies were completed. kmg1 02:26 Patient left the ED. kmg1 Signatures: Daisy Umanzor, RN RN kmg1 Sadaf Xavier, RN RN Armen Baer, SURGICAL SCHEDULER SURGICAL SCHEDULER dd6 Vanessa Sexton, SURGICAL SCHEDULER SURGICAL SCHEDULER ct3 Bhavna Manrique Christopher, RPA-C RPA-Cck7 Henry Espino,RN RN Maria Guadalupe Hooks LPN LPN slm Smith, Mallory, RN RN ms18 Tiffanie Faith, Reg Reg ks16 MTDD
--- NOTE | 2016-10-26 15:48 | ECGEPIP ---
Stationary ECG Study [facility] - ED Test Date: 2016-10-25 Pat Name: HUGH WEST Department: Room: - Gender: F [place] Tier: [facility] : 1945 Requested By: Brice Jimenez PA-C Order Number: [id number] Reading MD: Ijeoma Norris Measurements Intervals [place] Rate: 83 P: 43 PA: 227 QRS: 35 QRSD: 179 T: 4 QT: 444 QTc: 522 Interpretive Statements SINUS RHYTHM WITH FIRST DEGREE AV BLOCK WITH OCCASIONAL VENTRICULAR PREMATURE COMPLEXES RIGHT BUNDLE BRANCH BLOCK NSTTW ABNORMALITY SIMILAR 02/21/16 Electronically Signed On 10-26-2016 15:47:53 EST by Ijeoma Norris
--- NOTE | 2016-10-27 11:10 | REP ---
PA and lateral chest: Comparisons are 09/30/2016 and 02/21/2016. There are no infiltrates, effusions or masses. There is cardiomegaly, unchanged from both prior studies. There are surgical clips in the right axilla, unchanged. The braulio, mediastinum, and bony thorax are unremarkable. Impression: Chronic cardiomegaly. Surgical clips in the right axilla. Otherwise, negative PA and lateral chest. Signed by Kip Orozco MD 10/26/2016 09:12 A
--- NOTE | 2016-10-28 03:27 | EDDOCDS ---
Physician Documentation [facility] Name: Duke Pichardo Age: 71 yrs Sex: Female : 1945 Arrival Date: 10/25/2016 Time: 18:09 Bed TR7 Private MD: MYRIAM Xie Disposition: 10/26/16 01:32 Discharged to Home/Self Care. Impression: Fever, unspecified, Viral infection, unspecified. - Condition is Stable. - Discharge Instructions: Fever, Adult, Viral Infections. - Medication Reconciliation, Local Pharmacy Hours form. - Follow up: MYRIAM Xie; When: 1 - 2 days; Reason: Recheck today's complaints, Continuance of care. - Problem is new. - Symptoms have improved. - Notes: USE TYLENOL OR MOTRIN FOR FEVER CONTROL, FOLLOW UP WITH YOUR DOCTOR ON THURSDAY, RETURN TO THE ER IF THE SYMPTOMS WORSEN OR BECOME CONCERNING Historical: - Allergies: PENICILLINS; - Home Meds: 1. aspirin 81 mg Oral TbEC 1 tab once daily 2. atorvastatin 20 mg oral tab 1 tab once daily 3. clonidine HCl 0.1 mg Oral tab 1 tab 3 times per day 4. docusate sodium 100 mg Oral cap 1 cap once daily 5. esomeprazole magnesium 40 mg Oral cpDR 1 cap once daily 6. loratadine 10 mg Oral TbDL 1 tab once daily as needed 7. metformin 500 mg Oral tr24 1 tab once daily 8. Micardis 80 mg Oral tab 1 tab once daily 9. Mobic 15 mg oral tab 1 tab once daily 10. Norvasc 10 mg Oral tab 1 tab at night 11. Catapres 0.1 mg Oral tab 1 tab 3 times per day - PMHx: Asthma; Cancer, Breast - Right; CHF; Diabetes - NIDDM: controlled; GERD; hyperlipidemia; Hypertension; - PSHx: Knee surgery- Left; Knee surgery- Right; Mastectomy- Right; Hysterectomy; - Social history: Smoking status: Patient states was never smoker of tobacco. No barriers to communication noted, The patient speaks fluent Hebrew. - Family history: Not pertinent, No immediate family members are acutely ill. - : The pt / caregiver states he / she is not on anticoagulants. Home medication list is obtained from the patient. - Exposure Risk Screening:: None identified. Vital Signs: 10/25 18:11 BP 136 / 77; Pulse 84; Resp 18 S; Temp 97.9(O); Pulse Ox 98% on R/A; Weight 65.32 kg / dd6 144.01 lbs (R); Height 5 ft. 1 in. (154.94 cm) (R); 21:26 BP 130 / 72; Pulse 81; Resp 18; Temp 97.5; Pulse Ox 98% on R/A; Pain 0/10; ct3 21:45 BP 167 / 83; Pulse 89; Resp 18; Temp 97.7(O); Pulse Ox 97% on R/A; [facility] 10/26 02:08 BP 176 / 96; Pulse 80; Resp 18; Temp 97.5(O); Pulse Ox 98% on R/A; [facility] 10/25 18:11 Body Mass Index 27.21 (65.32 kg, 154.94 cm) dd6 MDM: 10/25 19:20 -Blood Culture (Adults Only), peripheral from different site, or from device/port/PICC ck7 etc. if present ordered. 19:20 Obtain sample by nasopharyngeal swab ordered. ck7 19:20 CBC with Diff Ordered. EDMS 19:20 MED Profile Ordered. EDMS 19:21 UA Ordered. EDMS 19:21 -Blood Culture Ordered. EDMS 19:21 -Influenza A&B Rapid Antigen - Nose Ordered. EDMS 19:21 Urine Culture Ordered. EDMS 19:21 Chest, 2 View (pa\E\lat) Ordered. EDMS 19:23 -Blood Culture (Adults Only), peripheral from different site, or from device/port/PICC ajs etc. if present complete. 19:25 BLOOD CULTURES Ordered. EDMS 21:06 CBC with Diff Reviewed. ck7 21:06 MED Profile Reviewed. ck7 21:06 UA Reviewed. ck7 21:06 -Influenza A&B Rapid Antigen - Nose Reviewed. ck7 21:41 Recheck Vital Signs, perform reassessment and enter into [employer] ordered. ck7 21:41 Accucheck ordered. ck7 21:47 IV Saline Lock ordered. ck7 21:48 ECG WITH READING ER PHYS+CARDIAG ordered. EDMS 21:55 Fingerstick Blood Sugar Ordered. EDMS 23:32 MED Profile Reviewed. ck7 23:32 Fingerstick Blood Sugar Reviewed. ck7 23:32 Cardiac Marker Panel Reviewed. ck7 23:36 Financial registration complete. ks16 23:49 Accucheck ordered. ck7 10/26 00:07 Redraw CIP &Troponin (put time in details section) ordered. ck7 00:09 [facility] Payment Agreement was scanned into [employer] and attached to record. ks16 00:14 Redraw CIP &Troponin (put time in details section) complete. ajs 00:15 CARDIAC INJURY PROFILE Ordered. EDMS 00:15 TROPONIN Ordered. EDMS 00:31 Fingerstick Blood Sugar Ordered. EDMS 01:14 Fingerstick Blood Sugar Reviewed. ck7 01:14 CARDIAC INJURY PROFILE Reviewed. ck7 01:14 TROPONIN Reviewed. ck7 01:16 metFORMIN 500 mg PO once ordered. ck7 01:16 amLODIPine 10 mg PO once ordered. ck7 01:16 cloNIDine 0.1 mg PO once ordered. ck7 20:21 ECG/EKG was scanned into [employer] and attached to record. kf3 22:06 T-Sheet-- Draft Copy was scanned into [employer] and attached to record. [facility] Point of Care Testing: Blood Glucose: 00:43 Blood Glucose: 143 mg/dL; alicia Ranges: Administered Medications: : Drug: metFORMIN 500 mg [metformin 500 mg tablet (1 tabs)] Route: PO; jmb Drug: amLODIPine 10 mg [amlodipine 5 mg tablet (2 tabs)] Route: PO; jmb : Drug: cloNIDine 0.1 mg [clonidine HCl 0.2 mg tablet (0.5 tabs)] Route: PO; alicia Signatures: Dispatcher [employer] EDWV Daisy Umanzor RN RN kmg1 Angel Rawls, Reg Reg kf3 Sadaf Xavier RN RN jjr Slate, Amanda ajs Kwaczala, Christopher, TYRESE-C RPA-Cck7 Tiffanie Faith, Reg Reg ks16 Radha Rendon Joshua RN jmb The chart was reviewed and I authenticate all verbal orders and agree with the evaluation and treatment provided.Corrections: (The following items were deleted from the chart) 10/25 21:53 21:48 CARDIAC MARKER PANEL+LAB ordered. EDMS EDMS 22:12 21:53 CARDIAC MARKER PANEL ordered. EDMS EDMS Attachments: 10/26 00:09 [facility] Payment Agreement ks16 20:21 ECG/EKG kf3 22:06 T-Sheet-- Draft Copy klr Chart Complete MTDD
--- NOTE | 2016-10-28 03:27 | EDDOCDS ---
Nurse's Notes [facility] Name: Hugh Pichardo Age: 71 yrs Sex: Female : 1945 Arrival Date: 10/25/2016 Time: 18:09 Bed TR7 Private MD: MYRIAM Xie Diagnosis: Fever, unspecified;Viral infection, unspecified Presentation: 10/25 18:13 Presenting complaint: Patient states: fever and chills began earlier today. Adult jjr Sepsis Screening: The patient does not have new or worsening altered mentation. Patient's respiratory rate is less than 22. Systolic blood pressure is greater than 100. Patient has a qSOFA score of 0- Negative Sepsis Screen. Suicide/Homicide risk assessment- the patient denies having any suicidal and/or homicidal ideations and does not present with any other emotional, behavioral or mental health complaints. Status: Patient is not a school services officer or dependent. Transition of care: patient was not received from another setting of care. 18:13 Acuity: JAYLEEN Level 4 jjr 18:13 Method Of Arrival: Walkin/Carried/Asstd jjr Triage Assessment: 18:18 General: Appears in no apparent distress. General: Reports fever for 0-12 hours. Pain: jjr Denies pain. Historical: - Allergies: PENICILLINS; - Home Meds: 1. aspirin 81 mg Oral TbEC 1 tab once daily 2. atorvastatin 20 mg oral tab 1 tab once daily 3. clonidine HCl 0.1 mg Oral tab 1 tab 3 times per day 4. docusate sodium 100 mg Oral cap 1 cap once daily 5. esomeprazole magnesium 40 mg Oral cpDR 1 cap once daily 6. loratadine 10 mg Oral TbDL 1 tab once daily as needed 7. metformin 500 mg Oral tr24 1 tab once daily 8. Micardis 80 mg Oral tab 1 tab once daily 9. Mobic 15 mg oral tab 1 tab once daily 10. Norvasc 10 mg Oral tab 1 tab at night 11. Catapres 0.1 mg Oral tab 1 tab 3 times per day - PMHx: Asthma; Cancer, Breast - Right; CHF; Diabetes - NIDDM: controlled; GERD; hyperlipidemia; Hypertension; - PSHx: Knee surgery- Left; Knee surgery- Right; Mastectomy- Right; Hysterectomy; - Social history: Smoking status: Patient states was never smoker of tobacco. No barriers to communication noted, The patient speaks fluent Spanish. - Family history: Not pertinent, No immediate family members are acutely ill. - : The pt / caregiver states he / she is not on anticoagulants. Home medication list is obtained from the patient. - Exposure Risk Screening:: None identified. Screenin:40 Screening information is obtained from the patient. Fall risk: No risks identified. kmg1 Assistance ADL's: requires no assistance with activities of daily living. Abuse/DV Screen: The patient / caregiver reports he/she is: not in a situation that causes fear, pain or injury. Nutritional screening: No deficits noted. Advance Directives: There is no active DNR order. home support is adequate. Assessment: 19:40 General: Appears in no apparent distress, Behavior is appropriate for age, cooperative. kmg1 Neurological: Level of Consciousness is awake, alert, Oriented to person, place, time. EENT: Reports Cold symptoms and fever. Respiratory: Airway is patent Respiratory effort is even, unlabored, Respiratory pattern is regular, symmetrical. 21:55 General: Appears in no apparent distress, ill, Behavior is appropriate for age, kmg1 cooperative. Neurological: Level of Consciousness is awake, alert, Oriented to person, place, time. Respiratory: Airway is patent Respiratory effort is even, unlabored, Respiratory pattern is regular, symmetrical. 22:02 General: Appears in no apparent distress, comfortable, Behavior is appropriate for age, ms18 cooperative, pleasant. Pain: Denies pain. Neurological: Level of Consciousness is awake, alert, obeys commands, Oriented to person, place, time. Cardiovascular: Rhythm is sinus rhythm. Respiratory: Airway is patent Respiratory effort is even, unlabored. Respiratory: Airway is patent Respiratory effort is even, unlabored, Respiratory pattern is regular, symmetrical. Derm: Skin is pink, warm & dry. 22:56 General: Pt in no acute distress. Pt ate a box lunch and states that she feels good. Pt ms18 requests water. Will continue to monitor pt. Respiratory: No deficits noted. Derm: Skin is pink, warm & dry. 23:32 General: Appears in no apparent distress, comfortable, Behavior is appropriate for age, jmb cooperative, Patient ambulated to bathroom, sitting on stretcher at this time. No voiced complaints at this time. . Neurological: Level of Consciousness is awake, alert, obeys commands, Oriented to person, place, time. Respiratory: Airway is patent Respiratory effort is even, unlabored, Respiratory pattern is regular, symmetrical. 10/26 02:08 Reassessment: Patient appears in no apparent distress at this time. Patient states km feeling better. Patient states symptoms have improved. Vital Signs: 10/25 18:11 BP 136 / 77; Pulse 84; Resp 18 S; Temp 97.9(O); Pulse Ox 98% on R/A; Weight 65.32 kg dd6 (R); Height 5 ft. 1 in. (154.94 cm) (R); 21:26 BP 130 / 72; Pulse 81; Resp 18; Temp 97.5; Pulse Ox 98% on R/A; Pain 0/10; ct3 21:45 BP 167 / 83; Pulse 89; Resp 18; Temp 97.7(O); Pulse Ox 97% on R/A; [facility] 10/26 02:08 BP 176 / 96; Pulse 80; Resp 18; Temp 97.5(O); Pulse Ox 98% on R/A; [facility] 10/25 18:11 Body Mass Index 27.21 (65.32 kg, 154.94 cm) dd6 Vitals: 10/25 18:11 Log In Time: October 25, 2016 at 18:09. dd6 ED Course: 18:10 Patient visited by Armen Valerio PCA. dd6 18:10 Patient moved to Waiting dd6 18:11 Rojas [facility] is Private Physician. dd6 18:13 Patient moved to Pre RCE dd6 18:15 Triage Initiated jjr 18:49 Patient moved to Triage 1 jmb 19:03 [facility] ck7 19:03 Patient visited by Brice Majano RPA-C. ck7 19:23 Evan Dimas DO is Attending Physician. ck7 19:38 Patient visited by Brice Majano RPA-C. ck7 19:38 -Influenza A&B Rapid Antigen - Nose Sent. jmb 19:38 MED Profile Sent. jmb 19:38 CBC with Diff Sent. jmb 19:40 Patient moved to TR2 ct3 19:40 The patient / caregiver is instructed regarding the plan of care and ED course. [facility] 19:40 BLOOD CULTURES Sent. ct3 19:40 Urine Culture Sent. ct3 19:40 UA Sent. ct3 19:40 -Blood Culture Sent. ct3 20:25 Patient visited by Vanessa Sexton PCA. ct3 20:56 Patient visited by Vanessa Sexton PCA. ct3 21:22 Patient moved to PR1 / 25 slm 21:23 Patient moved to PR2 / 26 slm 21:31 Patient visited by Vanessa Sexton PCA. ct3 21:48 Patient moved to I3 / M3 ajs 22:02 Patient visited by Nara Roman,RN. ms18 22:02 Patient has correct armband on for positive identification. Placed in gown. Property ms18 :Personal belongings accompany Pt. 22:02 Inserted saline lock: 20 gauge in left antecubital area and blood collected. The ms18 patient tolerated the procedure well. 22:05 Patient visited by Bhavna Manrique. ajs 22:05 EKG done. (by ED staff). Reviewed by Brice STARK. ajs 22:38 Patient visited by Brice Majano RPA-C. ck7 22:56 Patient visited by Nara Roman,MERI. ms18 23:32 Patient visited by Brice Majano RPA-C. ck7 23:33 Patient visited by Henry Espino,MERI. jmb 10/26 00:09 [facility] Payment Agreement was scanned into [employer] and attached to record. ks16 00:10 Patient visited by Brice Majano RPA-C. ck7 00:24 TROPONIN Sent. ajs 00:24 CARDIAC INJURY PROFILE Sent. ajs 00:52 Patient visited by Brice Majano RPA-C. ck7 01:32 Rojas [facility] is Referral Physician. ck7 02:04 Patient moved to TR7 jmb 02:08 Discontinued lock bleeding controlled, pressure dressing applied, No redness/swelling kmg1 at site. No procedures done that require assistance. 16:04 EKG-ADULT Returned. EDMS 20:21 ECG/EKG was scanned into [employer] and attached to record. kf3 22:06 T-Sheet-- Draft Copy was scanned into [employer] and attached to record. r 10/27 11:19 Chest, 2 View (pa\E\lat) Returned. EDMS Administered Medications: 10/26 01:27 Drug: metFORMIN 500 mg [metformin 500 mg tablet (1 tabs)] Route: PO; [facility] : Drug: amLODIPine 10 mg [amlodipine 5 mg tablet (2 tabs)] Route: PO; [facility] : Drug: cloNIDine 0.1 mg [clonidine HCl 0.2 mg tablet (0.5 tabs)] Route: PO; [facility] Point of Care Testing: Blood Glucose: 00:43 Blood Glucose: 143 mg/dL; [facility] Ranges: Order Results: Lab Order: CBC with Diff; SPEC'M 10/25/16 19:22 Test: WHITE BLOOD COUNT; Value: 7.3; Range: 4.0-10.0; Units: K/mm3; Status: F Test: RED BLOOD COUNT; Value: 4.53; Range: 4.00-5.40; Units: M/mm3; Status: F Test: HEMOGLOBIN; Value: 13.3; Range: 12.0-16.0; Units: g/dl; Status: F Test: HEMATOCRIT; Value: 38.9; Range: 36.0-47.0; Units: %; Status: F Test: MEAN CORPUSCULAR VOLUME; Value: 85.8; Range: 80.0-96.0; Units: fl; Status: F Test: MEAN CORPUSCULAR HEMOGLOBIN; Value: 29.3; Range: 27.0-33.0; Units: pg; Status: F Test: MEAN CORPUSCULAR HGB CONC; Value: 34.2; Range: 32.0-36.5; Units: g/dl; Status: F Test: RED CELL DISTRIBUTION WIDTH; Value: 12.9; Range: 11.5-14.5; Units: %; Status: F Test: PLATELET COUNT, AUTOMATED; Value: 231; Range: 150-450; Units: k/mm3; Status: F Test: NEUTROPHILS %; Value: 61.8; Range: 36.0-66.0; Units: %; Status: F Test: LYMPH %; Value: 26.3; Range: 24.0-44.0; Units: %; Status: F Test: MONO %; Value: 5.8; Range: 0.0-5.0; Abnormal: Above high normal; Units: %; Status: F Test: EOS %; Value: 1.1; Range: 0.0-3.0; Units: %; Status: F Test: BASO %; Value: 2.9; Range: 0.0-1.0; Abnormal: Above high normal; Units: %; Status: F Test: LARGE UNSTAINED CELL %; Value: 2.1; Range: 0.0-4.0; Units: %; Status: F Test: NEUTROPHILS #; Value: 4.5; Range: 1.8-7.7; Units: K/mm3; Status: F Test: LYMPH #; Value: 2.1; Range: 1.5-4.5; Units: K/mm3; Status: F Test: MONO #; Value: 0.4; Range: 0.0-0.8; Units: K/mm3; Status: F Test: EOS #; Value: 0.1; Range: 0.0-0.50; Units: K/mm3; Status: F Test: BASO #; Value: 0.2; Range: 0.0-0.2; Units: K/mm3; Status: F Test: LARGE UNSTAINED CELL #; Value: 0.2; Range: 0.0-0.4; Units: K/mm3; Status: F Lab Order: MED Profile; SPEC'M 10/25/16 19:22 Test: GLUCOSE, FASTING; Value: 102; Range: 83-110; Units: MG/DL; Status: F Test: BLOOD UREA NITROGEN; Value: 12; Range: 7-18; Units: MG/DL; Status: F Test: CREATININE FOR GFR; Value: 0.70; Range: 0.55-1.02; Units: MG/DL; Status: F Test: GLOMERULAR FILTRATION RATE; Value: > 60.0; Range: >39; Status: F Test: SODIUM LEVEL; Value: 135; Range: 136-145; Abnormal: Below low normal; Units: MEQ/L; Status: F Test: POTASSIUM SERUM; Value: 3.9; Range: 3.5-5.1; Units: MEQ/L; Status: F Test: CHLORIDE LEVEL; Value: 98; Range: 98-107; Units: MEQ/L; Status: F Test: CARBON DIOXIDE LEVEL; Value: 30; Range: 21-32; Units: MEQ/L; Status: F Test: ANION GAP; Value: 7; Range: 8-16; Abnormal: Below low normal; Units: MEQ/L; Status: F Test: CALCIUM LEVEL; Value: 9.6; Range: 8.8-10.2; Units: MG/DL; Status: F Test Note: ; Units are mL/min/1.73 m2 Chronic Kidney Disease Staging per NKF: Stage I & II GFR >=60 Normal to Mildly Decreased Stage III GFR 30-59 Moderately Decreased Stage IV GFR 15-29 Severely Decreased Stage V GFR <15 Very Little GFR Left ESRD GFR <15 on [employer] MACHINE OPERATOR Lab Order: -Blood Culture; SPEC'M 10/25/16 19:22 Test: BLOOD CULTURE; Value: No growth after 24 hours . All specimens observed; Status: F Test: BLOOD CULTURE; Value: for 5 days. Results final at that time.; Status: F Test: BLOOD CULTURE; Value: No Growth after 48 hours. All Specimens observed; Status: F Test: BLOOD CULTURE; Value: for 7 days. Results final at that time.; Status: F Lab Order: -Influenza A&B Rapid Antigen - Nose; SPEC'M 10/25/16 19:22 Test: INFLUENZA A RAPID SCR by ICA; Value: INFLUENZA A RESULTS NEGATIVE; Status: F Test: INFLUENZA A RAPID SCR by ICA; Value: Comments:; Status: F Test: INFLUENZA B RAPID SCR by ICA; Value: INFLUENZA B RESULTS NEGATIVE; Status: F Test Note: ; The Influenza test is a direct rapid immunoassay for the qualitative detection of Influenza viral antigen. Cell culture (Viral Culture) testing should be considered to confirm NEGATIVE results and to assist in detecting other viruses that can provide similar clinical symptoms. Please contact the lab within 24 hours ([phone]) if confirmatory testing is desired. Lab Order: UA; SPEC'M 10/25/16 19:22 Test: APPEARANCE, URINE; Value: CLEAR; Range: CLEAR; Status: F Test: COLOR, URINE; Value: STRAW; Range: YELLOW; Status: F Test: PH,URINE; Value: 7.0; Range: 5.0-9.0; Units: UNITS; Status: F Test: SPECIFIC GRAVITY URINE AUTO; Value: 1.003; Range: 1.002-1.035; Status: F Test: PROTEIN, URINE AUTO; Value: NEGATIVE; Range: NEGATIVE; Units: mg/dL; Status: F Test: GLUCOSE, URINE (UA) AUTO; Value: NEGATIVE; Range: NEGATIVE; Units: mg/dL; Status: F Test: KETONE, URINE AUTO; Value: NEGATIVE; Range: NEGATIVE; Units: mg/dL; Status: F Test: UROBILINOGEN, URINE AUTO; Value: 0.2; Range: 0.0-2.0; Units: mg/dL; Status: F Test: BILIRUBIN, URINE AUTO; Value: NEGATIVE; Range: NEGATIVE; Status: F Test: NITRITE, URINE AUTO; Value: NEGATIVE; Range: NEGATIVE; Status: F Test: LEUKOCYTE ESTERASE, URINE AUTO; Value: TRACE; Range: NEGATIVE; Abnormal: Above high normal; Status: F Test: BLOOD, URINE BLOOD; Value: NEGATIVE; Range: NEGATIVE; Status: F Test: WBC, URINE AUTO; Value: 0; Range: 0-3; Units: /HPF; Status: F Test: RBC, URINE AUTO; Value: 0; Range: 0-3; Units: /HPF; Status: F Test: BACTERIA, URINE AUTO; Value: 1+; Range: NEGATIVE; Abnormal: Above high normal; Status: F Test: SQUAMOUS EPITHELIAL CELL UR AU; Value: 0; Range: 0-6; Units: /HPF; Status: F Test: HYALINE CAST, URINE AUTO; Value: 0; Range: 0-1; Units: /LPF; Status: F Lab Order: Urine Culture; SPEC'M 10/25/16 19:22 Test: URINE CULTURE; Value: <EXTERNAL COMMENT eCWMed> FULL REPORT IN LAB NOTES (eCW and Medent).; Status: F Test: URINE CULTURE; Value: URINE CULTURE RESULT NO GROWTH; Status: F Lab Order: BLOOD CULTURES; SPEC'M 10/25/16 19:37 Test: BLOOD CULTURE; Value: No growth after 24 hours . All specimens observed; Status: F Test: BLOOD CULTURE; Value: for 5 days. Results final at that time.; Status: F Test: BLOOD CULTURE; Value: No Growth after 48 hours. All Specimens observed; Status: F Test: BLOOD CULTURE; Value: for 7 days. Results final at that time.; Status: F Lab Order: Cardiac Marker Panel; [facility] 10/25/16 22:00 Test: CPK CREATINE PHOSPHOKINASE; Value: 95; Range: 26-192; Units: U/L; Status: F Test: CK-MB VALUE MASS; Value: 1.0; Range: 0.0-3.6; Units: NG/ML; Status: F Test: MB/CK RELATIVE INDEX; Value: 1.05; Range: < OR =4; Status: F Test: TROPONIN I; Value: < 0.02; Range: < 0.10; Units: NG/ML; Status: F Test Note: ; DIAGNOSIS CRITERIA MMB ng/ml Relative Index (RI) NON-AMI < or = 5 N/A [place] > 5 < or = 4 AMI > 5 > 4 Lab Order: Fingerstick Blood Sugar; [facility] 10/25/16 21:43 Test: BEDSIDE GLUCOSE; Value: 78; Range: 83-110; Abnormal: Below low normal; Units: MG/DL; Status: F Lab Order: CARDIAC INJURY PROFILE; [facility] 10/26/16 00:21 Test: CPK CREATINE PHOSPHOKINASE; Value: 82; Range: 26-192; Units: U/L; Status: F Test: CK-MB VALUE MASS; Value: 1.2; Range: 0.0-3.6; Units: NG/ML; Status: F Test: MB/CK RELATIVE INDEX; Value: 1.46; Range: < OR =4; Status: F Test Note: ; DIAGNOSIS CRITERIA MMB ng/ml Relative Index (RI) NON-AMI < or = 5 N/A [place] > 5 < or = 4 AMI > 5 > 4 Lab Order: TROPONIN; [facility] 10/26/16 00:21 Test: TROPONIN I; Value: < 0.02; Range: < 0.10; Units: NG/ML; Status: F Test Note: ; Troponin I Reference Interval for [place]. LOCI: 99th Percentile= 0.00-0.045 ng/ml Risk Stratification: <= 0.10 ng/ml Decreased Risk for Adverse Clinical Events. 0.10-1.50 ng/ml Increased Risk for Adverse Clinical Events. Evaluation of additional criterion and/or repeat testing in 2-6 hours is suggested to rule out myocardial damage. >= 1.50 ng/ml Indicative of Myocardial Injury. Lab Order: Fingerstick Blood Sugar; SPEC'M 10/26/16 00:20 Test: BEDSIDE GLUCOSE; Value: 143; Range: 83-110; Abnormal: Above high normal; Units: MG/DL; Status: F Radiology Order: Chest, 2 View (pa\E\lat) Test: Chest, 2 View (pa\E\lat) REASON FOR EXAMINATION: Cough; PA and lateral chest:; ; Comparisons are 09/30/2016 and 02/21/2016.; ; There are no infiltrates, effusions or masses.; ; There is cardiomegaly, unchanged from both prior studies.; ; There are surgical clips in the right axilla, unchanged.; ; The braulio, mediastinum, and bony thorax are unremarkable.; ; Impression:; ; Chronic cardiomegaly.; ; Surgical clips in the right axilla.; ; Otherwise, negative PA and lateral chest.; ; ; Signed by; Kip Orozco MD 10/26/2016 09:12 A; Radiology Order: EKG-ADULT Test: EKG-ADULT REASON FOR EXAMINATION: Chest Pain; Stationary ECG Study; [facility] - ED; ; Test Date: 2016-10-25; Pat Name: HUGH PICHARDO Department:; Room: -; Gender: F Operations Support Professionals: mike; : 1945 Requested By: Brice Bledsoe PA-C; Order Number: [id number] Reading MD: Ijeoma Norris; Measurements; Intervals [place]; Rate: 83 P: 43; SD: 227 QRS: 35; QRSD: 179 T: 4; QT: 444; QTc: 522; Interpretive Statements; SINUS RHYTHM WITH FIRST DEGREE AV BLOCK WITH OCCASIONAL VENTRICULAR PREMATURE; ; COMPLEXES; RIGHT BUNDLE BRANCH BLOCK; NSTTW ABNORMALITY; SIMILAR 02/21/16; Electronically Signed On 10-26-2016 15:47:53 EST by Ijeoma Norris; Outcome: 01:32 Discharge ordered by Provider. ck7 02:08 Discharge Assessment: Patient awake, alert and oriented x 3. No cognitive and/or kmg1 functional deficits noted. Patient verbalized understanding of disposition instructions. Patient awake and alert. patient administered narcotics - no. The following High Risk Discharge criteria are identified: None. Discharged to home ambulatory. Condition: stable. Discharge instructions given to patient, Instructed on discharge instructions, follow up and referral plans. medication usage, Demonstrated understanding of instructions, Pt was receptive of discharge instructions/ teaching. 02:10 No special radiology studies were completed. [facility] 02:26 Patient left the ED. [facility] Signatures: Dispatcher [employer] EDMS Daisy Umanzor, RN RN kmg1 Angel Rawls, Reg Reg kf3 Sadaf Xavier, RN RN jjArmen Veras, FILLING TECHNICIAN FILLING TECHNICIAN dd6 Sexton, Vanessa, FILLING TECHNICIAN FILLING TECHNICIAN ct3 Slaxavier, Brice Moran, RPA-C RPA-Cck7 Henry Espino,RN RN Maria Guadalupe Hooks,SHOESHINER SHOESHINER Nara Roy RN RN ms18 Tiffanie Faith, Reg Reg ks16 Radha Rendon Chart Complete [facility]
--- NOTE | 2016-10-28 03:27 | EDDOCDS ---
Physician Documentation [facility] Name: Duke Pichardo Age: 71 yrs Sex: Female : 1945 Arrival Date: 10/25/2016 Time: 18:09 Bed TR7 Private MD: MYRIAM Xie Disposition: 10/26/16 01:32 Discharged to Home/Self Care. Impression: Fever, unspecified, Viral infection, unspecified. - Condition is Stable. - Discharge Instructions: Fever, Adult, Viral Infections. - Medication Reconciliation, Local Pharmacy Hours form. - Follow up: MYRIAM Xie; When: 1 - 2 days; Reason: Recheck today's complaints, Continuance of care. - Problem is new. - Symptoms have improved. - Notes: USE TYLENOL OR MOTRIN FOR FEVER CONTROL, FOLLOW UP WITH YOUR DOCTOR ON THURSDAY, RETURN TO THE ER IF THE SYMPTOMS WORSEN OR BECOME CONCERNING Historical: - Allergies: PENICILLINS; - Home Meds: 1. aspirin 81 mg Oral TbEC 1 tab once daily 2. atorvastatin 20 mg oral tab 1 tab once daily 3. clonidine HCl 0.1 mg Oral tab 1 tab 3 times per day 4. docusate sodium 100 mg Oral cap 1 cap once daily 5. esomeprazole magnesium 40 mg Oral cpDR 1 cap once daily 6. loratadine 10 mg Oral TbDL 1 tab once daily as needed 7. metformin 500 mg Oral tr24 1 tab once daily 8. Micardis 80 mg Oral tab 1 tab once daily 9. Mobic 15 mg oral tab 1 tab once daily 10. Norvasc 10 mg Oral tab 1 tab at night 11. Catapres 0.1 mg Oral tab 1 tab 3 times per day - PMHx: Asthma; Cancer, Breast - Right; CHF; Diabetes - NIDDM: controlled; GERD; hyperlipidemia; Hypertension; - PSHx: Knee surgery- Left; Knee surgery- Right; Mastectomy- Right; Hysterectomy; - Social history: Smoking status: Patient states was never smoker of tobacco. No barriers to communication noted, The patient speaks fluent Occitan. - Family history: Not pertinent, No immediate family members are acutely ill. - : The pt / caregiver states he / she is not on anticoagulants. Home medication list is obtained from the patient. - Exposure Risk Screening:: None identified. Vital Signs: 10/25 18:11 BP 136 / 77; Pulse 84; Resp 18 S; Temp 97.9(O); Pulse Ox 98% on R/A; Weight 65.32 kg / dd6 144.01 lbs (R); Height 5 ft. 1 in. (154.94 cm) (R); 21:26 BP 130 / 72; Pulse 81; Resp 18; Temp 97.5; Pulse Ox 98% on R/A; Pain 0/10; ct3 21:45 BP 167 / 83; Pulse 89; Resp 18; Temp 97.7(O); Pulse Ox 97% on R/A; [facility] [place] 10/26 02:08 BP 176 / 96; Pulse 80; Resp 18; Temp 97.5(O); Pulse Ox 98% on R/A; [facility] [place] 10/25 18:11 Body Mass Index 27.21 (65.32 kg, 154.94 cm) dd6 MDM: 10/25 19:20 -Blood Culture (Adults Only), peripheral from different site, or from device/port/PICC ck7 etc. if present ordered. 19:20 Obtain sample by nasopharyngeal swab ordered. ck7 19:20 CBC with Diff Ordered. EDMS 19:20 MED Profile Ordered. EDMS 19:21 UA Ordered. EDMS 19:21 -Blood Culture Ordered. EDMS 19:21 -Influenza A&B Rapid Antigen - Nose Ordered. EDMS 19:21 Urine Culture Ordered. EDMS 19:21 Chest, 2 View (pa\E\lat) Ordered. EDMS 19:23 -Blood Culture (Adults Only), peripheral from different site, or from device/port/PICC ajs etc. if present complete. 19:25 BLOOD CULTURES Ordered. EDMS 21:06 CBC with Diff Reviewed. ck7 21:06 MED Profile Reviewed. ck7 21:06 UA Reviewed. ck7 21:06 -Influenza A&B Rapid Antigen - Nose Reviewed. ck7 21:41 Recheck Vital Signs, perform reassessment and enter into [employer] ordered. ck7 21:41 Accucheck ordered. ck7 21:47 IV Saline Lock ordered. ck7 21:48 ECG WITH READING ER PHYS+CARDIAG ordered. EDMS 21:55 Fingerstick Blood Sugar Ordered. EDMS 23:32 MED Profile Reviewed. ck7 23:32 Fingerstick Blood Sugar Reviewed. ck7 23:32 Cardiac Marker Panel Reviewed. ck7 23:36 Financial registration complete. ks16 23:49 Accucheck ordered. ck7 10/26 00:07 Redraw CIP &Troponin (put time in details section) ordered. ck7 00:09 [facility] Payment Agreement was scanned into [employer] and attached to record. ks16 00:14 Redraw CIP &Troponin (put time in details section) complete. ajs 00:15 CARDIAC INJURY PROFILE Ordered. EDMS 00:15 TROPONIN Ordered. EDMS 00:31 Fingerstick Blood Sugar Ordered. EDMS 01:14 Fingerstick Blood Sugar Reviewed. ck7 01:14 CARDIAC INJURY PROFILE Reviewed. ck7 01:14 TROPONIN Reviewed. ck7 01:16 metFORMIN 500 mg PO once ordered. ck7 01:16 amLODIPine 10 mg PO once ordered. ck7 01:16 cloNIDine 0.1 mg PO once ordered. ck7 20:21 ECG/EKG was scanned into [employer] and attached to record. kf3 22:06 T-Sheet-- Draft Copy was scanned into [employer] and attached to record. norman Point of Care Testing: Blood Glucose: 00:43 Blood Glucose: 143 mg/dL; alicia Ranges: Administered Medications: : Drug: metFORMIN 500 mg [metformin 500 mg tablet (1 tabs)] Route: PO; jmb Drug: amLODIPine 10 mg [amlodipine 5 mg tablet (2 tabs)] Route: PO; jmb : Drug: cloNIDine 0.1 mg [clonidine HCl 0.2 mg tablet (0.5 tabs)] Route: PO; alicia Signatures: Dispatcher [employer] EDTN Daisy Umanzor RN RN kmg1 Angel Rawls, Reg Reg kf3 Sadaf Xavier RN RN jjr Slate, Amanda ajs Kwaczala, Christopher, TYRESE-C [id number] Tiffanie Faith, Reg Reg ks16 Radha Rendon Joshua RN jmb The chart was reviewed and I authenticate all verbal orders and agree with the evaluation and treatment provided.Corrections: (The following items were deleted from the chart) 10/25 21:53 21:48 CARDIAC MARKER PANEL+LAB ordered. EDMS EDMS 22:12 21:53 CARDIAC MARKER PANEL ordered. EDMS EDMS Attachments: 10/26 00:09 [facility] Payment Agreement ks16 20:21 ECG/EKG kf3 22:06 T-Sheet-- Draft Copy klr Chart Complete MTDD
== END 2016-10-26 02:26 | disposition home or self-care (01) ==
LOC: M ED 18:09
DX: B34.9 Viral infection, unspecified (principal); I10 Essential (primary) hypertension; E11.9 Type 2 diabetes mellitus without complications; J45.909 Unspecified asthma, uncomplicated; I50.20 Unspecified systolic (congestive) heart failure; E78.5 Hyperlipidemia, unspecified; K21.9 Gastro-esophageal reflux disease without esophagitis; Z79.82 Long term (current) use of aspirin; Z79.899 Other long term (current) drug therapy; Z79.84 Long term (current) use of oral hypoglycemic drugs; Z88.0 Allergy status to penicillin; Z85.3 Personal history of malignant neoplasm of breast

== ENCOUNTER 2017-04-27 17:46 | Emergency (ER) | payer MEDICARE, OTHER ==
[~2017-04-27] VITALS: Ht 154.9 cm; Wt 67.3 kg
[~2017-04-27 17:46] MED LIST changes: -COLA100C PO; +COLA100C5 PO; -METF500T PO; +METF500T13 PO; +PAXI20TA29 PO; -PAXI20TA3 PO
[2017-04-27 20:01] LABS: BASO # 0.1 K/mm3 (0.0-0.2); BASO % 0.9 % (0.0-1.0); EOS # 0.1 K/mm3 (0.0-0.50); EOS % 2.2 % (0.0-3.0); LARGE UNSTAINED CELL # 0.1 K/mm3 (0.0-0.4); LARGE UNSTAINED CELL % 1.9 % (0.0-4.0); LYMPH # 2.3 K/mm3 (1.5-4.5); LYMPH % 33.8 % (24.0-44.0); MEAN CORPUSCULAR HEMOGLOBIN 30.8 pg (27.0-33.0); MEAN CORPUSCULAR VOLUME 87.9 fl (80.0-96.0); MONO # 0.4 K/mm3 (0.0-0.8); MONO % 6.6 % (0.0-5.0); NEUTROPHILS # 3.6 K/mm3 (1.8-7.7); NEUTROPHILS % 54.7 % (36.0-66.0); PLATELET COUNT, AUTOMATED 272 k/mm3 (150-450); RED CELL DISTRIBUTION WIDTH 12.2 % (11.5-14.5); WHITE BLOOD COUNT 6.6 K/mm3 (4.0-10.0)
[2017-04-27 20:20] LABS: ALBUMIN 4.4 GM/DL (3.2-5.2); ALKALINE PHOSPHATASE 112 U/L (45-117); ALT/SGPT 22 U/L (12-78); ANION GAP 8 MEQ/L (8-16); AST/SGOT 14 U/L (15-37); BILIRUBIN,DIRECT < 0.1 MG/DL (0.0-0.2); BILIRUBIN,TOTAL 0.3 MG/DL (0.2-1.0); BLOOD UREA NITROGEN 11 MG/DL (7-18); CALCIUM LEVEL 9.7 MG/DL (8.8-10.2); CARBON DIOXIDE LEVEL 30 MEQ/L (21-32); CHLORIDE LEVEL 99 MEQ/L (98-107); CREATININE FOR GFR 0.72 MG/DL (0.55-1.02); GLOMERULAR FILTRATION RATE > 60.0 (>39); GLUCOSE, FASTING 109 MG/DL (83-110); POTASSIUM SERUM 3.9 MEQ/L (3.5-5.1); SODIUM LEVEL 137 MEQ/L (136-145); TOTAL PROTEIN 8.4 GM/DL (6.4-8.2)
[2017-04-27] MEDS ORDERED: IBUPROFEN 600 MG TAB PO ONE (20:45)
[2017-04-27] MEDS ORDERED: IBUP-1022 PO (20:45)
[2017-04-27 21:01] VITALS: BP 142/82
== END 2017-04-27 21:02 | disposition home or self-care (01) ==
LOC: M ED 17:46
DX: J06.9 Acute upper respiratory infection, unspecified (principal); Z79.82 Long term (current) use of aspirin; Z79.899 Other long term (current) drug therapy; Z79.84 Long term (current) use of oral hypoglycemic drugs; Z88.0 Allergy status to penicillin

== ENCOUNTER → 2017-05-11 | Outpatient (CLI) | payer MEDICARE, OTHER ==
[~2017-05-11] MED LIST changes: +IBUP-1022 PO
== END ==
LOC: M LAB 15:06
PROVIDERS: ATTEND Nurse Practitioner Acute Care
DX: K86.2 Cyst of pancreas (principal)